=== PATIENT | male | born 1960 | race Caucasian/White ===

== ENCOUNTER 2020-06-22 15:55 | Outpatient (REF) | payer OTHER, SELFPAY | END 2020-06-22 15:56 | disposition home or self-care (01) | LOC: HO.LAB 15:55 | PROVIDERS: Visit Provider Internal Medicine | DX: Z20.828 Contact with and (suspected) exposure to other viral communicable diseases (principal) | CPT/HCPCS: C9803; U0003 ==

== ENCOUNTER → 2024-02-17 09:15 | Outpatient (BNVA) | payer OTHER, SELFPAY | PROVIDERS: PCP Internal Medicine; Visit Provider Registered Nurse | DX: S93.622A Sprain of tarsometatarsal ligament of left foot, initial encounter (principal); W01.198A Fall on same level from slipping, tripping and stumbling with subsequent striking against other object, initial encounter | CPT/HCPCS: 73630; 99204 ==

== ENCOUNTER 2024-03-15 12:53 | Outpatient (REF) | payer OTHER, SELFPAY ==
--- NOTE | ~2024-03-15 | XR_ITS ---
XR ORBITS PRE-MRI SCREENING History: Pre-MRI, evaluate orbits for foreign body. COMPARISON: None. FINDINGS: -No radiopaque foreign bodies in either orbit or elsewhere within the imaged head and calvarium. -Mucous retention cyst suspected in the left maxillary sinus. No air-fluid levels. -Mild left deviation of the nasal septum with a small spur. -No focal bony lesions. Mastoids appear aerated. -No soft tissue abnormalities. XR/XR pre mri screening IMPRESSION: 1. No radiopaque foreign body seen. Cleared for MRI. 2. Probable mucus retention cyst left maxillary antrum.
--- NOTE | ~2024-03-15 | MR_ITS ---
EXAMINATION: MRI OF THE LEFT FOOT WITHOUT CONTRAST CLINICAL INFORMATION: Foot pain for 2 months. Patient reports pain across the top of the foot and toes since November 2023. COMPARISON: X-ray of the left foot January 2014. TECHNIQUE: MRI of the left foot is performed without contrast on a high field MRI scanner. Badmj-en-hrvg includes the forefoot and most of the tarsometatarsal joints. FINDINGS: SUBCUTANEOUS SOFT TISSUES: Minimal edema along the dorsal aspect of the foot. MUSCLES/TENDONS: There is moderate atrophy and fatty infiltration of the flexor hallucis brevis muscle. Muscles and tendons otherwise unremarkable. DISTAL PLANTAR FASCIA: Normal. NEUROVASCULAR STRUCTURES: Normal. LIGAMENTS AND CAPSULAR STRUCTURES: Normal. BONE/CARTILAGE: Second metatarsophalangeal joint: There is moderate osteoarthritis manifested by generalized cartilage loss and marginal osteophytes. Minimal subchondral edema. No effusion. There is mild/odml-im-ijeuzfas osteoarthritis involving the 2nd, 3rd and 4th tarsometatarsal joints manifested by subchondral cystic change. No fracture. MR/MR foot LT wo con IMPRESSION: 1. 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 2. Moderate atrophy and fatty infiltration of the flexor hallucis brevis muscle. 3. Mild generalized edema along the dorsal aspect of the foot.
== END 2024-03-15 12:54 | disposition home or self-care (01) ==
LOC: HO.MRI 12:53
PROVIDERS: PCP Internal Medicine; Visit Provider Internal Medicine
DX: M79.672 Pain in left foot (principal)
CPT/HCPCS: 73718

== ENCOUNTER → 2024-03-15 12:53 | Outpatient (BNV) | payer OTHER, SELFPAY | PROVIDERS: PCP Internal Medicine; Visit Provider Radiology Diagnostic Radiology | DX: M79.672 Pain in left foot (principal) | CPT/HCPCS: 73718 ==

== ENCOUNTER 2024-03-18 09:12 | Outpatient (REF) | payer OTHER, SELFPAY ==
[2024-03-18 10:22] LABS: MANUAL DIFF FLAG NO
[2024-03-18 10:23] LABS: Basophils Absolute Auto 0.1 X10*3/uL (0.0-0.2); Basophils Percent Auto 0.9 % (0-2); Eosinophils Absolute Auto 0.1 X10*3/uL (0.0-0.4); Eosinophils Percent Auto 1.5 % (0-4); Hematocrit 45.8 % (42.0-52.0); Hemoglobin 16.5 g/dl (14.0-18.0); Imm Gran Abs Auto 0.04 X10*3/uL (0.00-0.03); Imm Gran Pct Auto 0.5 % (0.0-0.4); Lymphocytes Absolute Auto 3.5 X10*3/uL (1.2-4.9); Lymphocytes Percent Auto 42.8 % (20-40); Mean Corpuscular Hemoglobin 33.5 pg (27.0-33.0); Mean Corpuscular Volume 93.1 fL (80.0-98.0); Mean Platelet Volume 12.2 fL (9.4-12.4); Monocytes Absolute Auto 0.8 X10*3/uL (0.1-1.2); Monocytes Percent Auto 9.3 % (2-11); Neutrophils Absolute Auto 3.7 x10*3/uL (2.0-8.3); Platelet Count 172 X10*3/uL (160-400); Red Blood Count 4.92 X10*6/uL (4.60-5.80); Red Cell Distribution Width 14.2 % (11.0-16.0); White Blood Count 8.2 X10*3/uL (4.8-10.8)
[2024-03-18 10:44] LABS: Appearance Urine Clear; Color Urine Yellow; Glucose Urine UA Negative (Negative); Leukocyte Esterase Urine Negative (Negative); Nitrite Urine Negative (Negative); PH 6.5 (5.0-9.0); UMIC TRIGGER UA YES; Urine Blood Negative (Negative); Urine Ketones Negative (Negative); Urine Protein 300 (3+) mg/dL (Neg-Trace)
[2024-03-18 10:49] LABS: Alanine Aminotransferase 29 U/L (0-40); Albumin Level 3.9 g/dL (3.5-5.0); Alkaline Phosphatase 90 U/L (39-117); Anion Gap 12 (12-20); Aspartate Amino Transferase 24 U/L (5-37); Bacteria Urine None Seen (None Seen); Bilirubin Total 0.4 mg/dL (0.0-1.0); Blood Urea Nitrogen 7 mg/dL (9-16); Calcium 9.3 mg/dL (8.4-10.2); Carbon Dioxide 25 mmol/L (22-29); Chloride 104 mmol/L (96-108); Cholesterol 272 mg/dL (<200); Estimated Glomerular Filt Rate > 60; Glucose Fasting 133 mg/dL (60-99); HDL Cholesterol 56 mg/dL (>40); Hyaline Casts Urine 0-2 /LPF (0-2); LDL Cholesterol Calculated 189 mg/dL (<100); Potassium 4.1 mmol/L (3.3-5.1); RBC Urine 0-2 /HPF (0-2); Sodium 137 mmol/L (135-145); Squamous Epithelial Cell Urine 0-2 /HPF (0-2); Total Protein 6.9 g/dL (6.5-8.0); Triglycerides 135 mg/dL (<150); WBC Urine 0-5 /HPF (0-5)
[2024-03-18 10:58] LABS: Prostate Specific Antigen Scr 2.68 ng/mL (<0.05-4.0)
== END 2024-03-18 09:13 | disposition home or self-care (01) ==
LOC: HO.10HDL 09:12
PROVIDERS: Visit Provider Internal Medicine
DX: Z12.5 Encounter for screening for malignant neoplasm of prostate (principal); I10 Essential (primary) hypertension; E78.00 Pure hypercholesterolemia, unspecified; Z72.0 Tobacco use
CPT/HCPCS: 36415; 80053; 80061; 81001; 84153; 85025

== ENCOUNTER 2025-04-05 15:08 | Outpatient (AMB) | payer OTHER, SELFPAY ==
--- OUTSIDE RECORDS SUMMARY | 2024-02-07 14:05 | XMS_ITS | Encounter Summary ---
Author Organization [facility] Address [address] [place] [address] [place] [phone] Phone Care Team Providers Care Sas Developer Analyst Name Role Phone Thompson Mayorga MD Primary Care Provider Encounter Details Date Type Department Care Team (Late st Contact Info) Description 02/07/2024 2:05 PM EDT Hospital Encounter [facility] [address] [place] [address] [phone] Ashok Chatman, REQUISITION APPROVER [address] [place] [address] [email or web address] Social History Tobacco Use Types Packs/Day Years [...] clinician's provided indication for this examination in [facility]: Pain; Twisted foot approximately 2 months ago, still having pain COMPARISON: None. Procedure Note Rey Stack MD - 02/07/2024 XR FOOT 3 OR MORE VIEWS (LEFT) Referring clinician's provided indication for this examination in [facility]:Pain; Twisted foot approximately 2 months ago, still having pain COMPARISON: None. IMPRESSION: No acute fracture or dislocation. Mild degenerative changes of the secondmetatarsophalangeal joint and minimal degenerative changes of the 1stmetatarsophalangeal joint. No soft tissue swelling. Melissaenrrique Shepardconstance Chatman REQUISITION APPROVER IMG XR LOWER EXTREMITY Final Result documented in this encounter Visit Diagnoses Not on filedocumented in this encounter Care Teams Sas Developer Analyst Relationship Specialty Start Date End Date Thompson Mayorga MD [address] [place] [address] [place] [address] PCP - General Internal Medicine 02/07/24 documented as of this encounter Additional Source Comments The information contained in this document represents components of the legal health record. It is not the complete legal health record.[facility]
--- NOTE | 2025-04-05 08:30 | A.OFFPC_ITS ---
Vital Signs 04/05/25 15:28 Height 5 ft 6 in Weight 206 lb BMI 33.2 BP 160/80 H Blood Pressure Location Rt brachial Position Sitting Pulse 96 Pulse Source Pulse Oximeter Temp 97.9 F Temp Source Temporal Artery Scan Pulse Oximetry (%) 97 Oxygen Delivery Method Room Air Intake Visit Reasons: Routine / Dr Mayorga Concrete Pump Operator Helper Required: No Accompanied by: Self / Same As Patient Allergies No Known Allergies Allergy (Verified 04/05/25 08:30) Medication List - Last Reconciled 04/05/25 by BIBI Camacho atorvastatin 20 mg PO DAILY diclofenac sodium 1% 2 grams topical QID Tobacco use date assessed: 04/05/25 Dental Screening Dental Screen Date: 04/05/25 Did you have a dental visit in the last 12 months?: No Did you have a dental problem in the last 6 months where you did not have access to dental care?: No HPI HPI Comments History of Present Illness Details The patient is a 64-year-old male presenting with concerns regarding hyp ertension management, foot pain, and skin lesions. The patient has a history of essential hypertension, previously managed with lisinopril, which was effective but discontinued due to a possible side effect of dry cough. He has not been on antihypertensive medication for some time, and his blood pressure was noted to be 160/80 mmHg. The plan is to reassess his blood pressure and consider restarting lisinopril or an alternative medication if necessary. The patient reports a left foot injury sustained from a work-related accident, resulting in persistent pain and swelling. He received a cortisone injection previously, which provided temporary relief, and has been using Voltaren gel for pain management. Imaging studies from a year ago revealed arthritis in the affected foot. The patient also presents with skin lesions diagnosed as seborrheic keratosis and actinic keratosis. These lesions have been present for some time, and a referral to a safety lead was recommended for further evaluation and management. [facility] Medical History (Updated 04/07/25 @ 15:47 by BIBI Camacho) Actinic keratoses Hyperlipidemia Hypertension Left foot pain Obesity (BMI 30.0-34.9) Seborrheic keratoses Family History (Updated 04/05/25 @ 15:32 by Sandee Shook MA) Mother No problems noted. Father No problems noted. Social History Housing: House Patient Tobacco Use Status: Current everyday Tobacco user e-Cigarette/Vaping Use: Currently Using (cigarette) service: No Current occupational status: retired Cognitive needs: No Hearing needs: No Vision needs: Yes (reading glasses) Questionnaire PHQ-9 Over the last 2 weeks, how often have you been bothered by any of the following problems? 1. Little interest or pleasure in doing things: not at all 2. Feeling down, depressed, or hopeless: not at all 3. Trouble falling or staying asleep, or sleeping too much: not at all 4. Feeling tired or having little energy: not at all 5. Poor appetite or overeating: not at all 6. Feeling bad about yourself - or that you are a failure or have let yourself or your family down: not at all 7. Trouble concentrating on things, such as reading the newspaper or watching television: not at all 8. Moving or speaking so slowly that other people could have noticed. Or the opposite - being so fidgety or restless that you have been moving around a lot more than usual: not at all 9. Thoughts that you would be better off or of hurting yourself in some way: not at all Total score: 0 Source: Developed by Drs. Devyn Spaulding, Chayito Bruce, Tomy Oropeza and colleagues, with an educational kathia from [employer]. Thrive Questionnaire Date Thrive assessed: 04/05/25 I am a: Patient Within the past 12 months, did the food you bought not last and you didn't have the money to get more?: Never true Within the past 12 months, did you worry whether your food would run out before you got money to buy more?: Never true Do you have trouble paying for medicines?: No Do you have trouble getting transportation to medical appointments?: No Do you have trouble paying your heating and electricity bill?: No Do you have trouble taking care of your child, family member or friend?: No Do you have trouble with day-to-day activities such as bathing, preparing meals, shopping, managing finances, etc.?: No Are you currently unemployed and looking for a job?: No Are you interested in more education?: No THRIVE Score: 0 AUDIT C Alcohol Use Questionnaire (AUDIT-C) 1. How often do you have a drink containing alcohol?: Monthly or less 2. How many drinks containing alcohol do you have on a typical day when you are drinking?: 1 or 2 3. How often do you have six or more drinks on one occasion?: Less than monthly Total Score: 2 MARGY-7 AMB Questionnaire MARGY-7 Date MARGY - 7 assessed: 04/05/25 Feeling nervous, anxious, or on edge: 0 = Not at all Not being able to stop or control worryin = Not at all Worrying too much about different things: 0 = Not at all Trouble relaxin = Not at all Being so restless that it is hard to sit still: 0 = Not at all Becoming easily annoyed or irritable: 0 = Not at all Feeling afraid as if something awful might happen: 0 = Not at all Total MARGY-7 score (0-4 normal; 5-9 mild; 10-14 moderate; 15-21 severe): 0 Source: Developed by Drs. Devyn Spaulding, Chayito Bruce, Tomy Oropeza and colleagues, with an educational kathia from [employer]. Review of Systems Const Details: - Dermatological: Reports skin lesions on the face. Denies new lesions elsewhere. - Neurological: Reports numbness and occasional spasms in the foot. Denies other neurological symptoms. CONSTITUTIONAL Negative HEAD/NECK Negative EAR/NOSE/MOUTH/THROAT Negative RESPIRATORY Negative CARDIOVASCULAR Reports history of hypertension. Denies current chest pain or palpitations. GASTROINTESTINAL Negative MUSCULOSKELETAL Reports left foot pain and swelling. Denies other joint pain. NEUROLOGICAL Reports numbness and occasional spasms in the foot. Denies other neurological symptoms. SKIN Reports skin lesions on the left side of face. Denies new lesions elsewhere. PSYCHIATRIC Negative Physical exam (Primary Care) Vital Signs: Last Vital Signs Temp 97.9 F 04/05/25 15:28 Pulse 96 04/05/25 15:28 BP 160/80 H 04/05/25 15:28 Pulse Ox 97 04/05/25 15:28 Oxygen Delivery Method Room Air 04/05/25 15:28 BMI result Body Mass Index 33.2 GENERAL Well developed, obese, in no apparent distress HEENT Head-Normocephalic Eyes- PERRLA, EOMI, Conjuctiva clear, lids WNL Ears- Canals clear, TMs WNL Mouth/Throat-No lesions, no erythema, no exudate Neck- Supple, No lymphadenopathy, thyroid WNL RESPIRATORY Normal I:E, Clear to auscultation CARDIOVASCULAR Regular, rate and rhythm, No murmurs or rubs GASTROINTESTINAL Soft, nontender, normal bowel sounds, no masses MUSCULOSKELETAL Left foot- Full ROM, no swelling, tender in heel and across top of foot. NEUROLOGICAL Gait normal SKIN Small Seborrheic keratosis on left cheek, small Actinic keratosis on left cheek PSYCHIATRIC Oriented to person, place and time Mood and affect WNL Appearance WNL Speech WNL Thought processes WNL Tobacco/Smoking Status: Tobacco use Status Tobacco use date assessed 04/05/25 04/05/25 08:32 Patient Tobacco Use Status Current everyday Tobacco 04/05/25 15:33 e-Cigarette/Vaping Use Currently Using (cigarette) 04/05/25 15:33 PHQ-9: PHQ-9 Score PHQ-9: Total score 0 04/05/25 15:54 Thrive Assessment: Date of Thrive Assessment Date Thrive assessed 04/05/25 04/05/25 08:32 Results Reviewed Results Reviewed: [place] [address] Magnetic Resonance Report Signed Patient: Ralph Golden MR#: [id number] : 1960 Ordering Physician: Tapan Teixeira MD Date of Service: 03/15/24 Procedure(s): MR foot LT wo con Accession Number(s): [id number] cc: Tapan Teixeira MD; Thompson Mayorga MD; SESAR LANDON M.D.~ EXAMINATION: MRI OF THE LEFT FOOT WITHOUT CONTRAST CLINICAL INFORMATION: Foot pain for 2 months. Patient reports pain across the top of the foot and toes since November 2023. COMPARISON: X-ray of the left foot January 2014. TECHNIQUE: MRI of the left foot is performed without contrast on a high field MRI scanner. Xwzvd-jj-qymt includes the forefoot and most of the tarsometatarsal joints. FINDINGS: SUBCUTANEOUS SOFT TISSUES: Minimal edema along the dorsal aspect of the foot. MUSCLES/TENDONS: There is moderate atrophy and fatty infiltration of the flexor hallucis brevis muscle. Muscles and tendons otherwise unremarkable. DISTAL PLANTAR FASCIA: Normal. NEUROVASCULAR STRUCTURES: Normal. LIGAMENTS AND CAPSULAR STRUCTURES: Normal. BONE/CARTILAGE: Second metatarsophalangeal joint: There is moderate osteoarthritis manifested by generalized cartilage loss and marginal osteophytes. Minimal subchondral edema. No effusion. There is mild/ludd-xx-fiusvjjq osteoarthritis involving the 2nd, 3rd and 4th tarsometatarsal joints manifested by subchondral cystic change. No fracture. MR/MR foot LT wo con IMPRESSION: 1. 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 2. Moderate atrophy and fatty infiltration of the flexor hallucis brevis muscle. 3. Mild generalized edema along the dorsal aspect of the foot. Coding Level of Care Code New Pt New Pt Level 4 (23687) Patient Type New Diagnoses Left foot pain M79.672 Primary hypertension I10 Hypertension type: primary hypertension Seborrheic keratoses L82.1 Actinic keratoses L57.0 Mixed hyperlipidemia E78.2 Hyperlipidemia type: mixed hyperlipidemia Obesity (BMI 30.0-34.9) E66.811 Time Spent (min) 35 Comment Time spent on chart review, H&P, patient education, placing referrals and orders Assessment & Plan Assessment & Plan (1) Left foot pain: Code(s): M79.672 - Pain in left foot Category: Medical Plan: The patient experiences persistent foot pain and swelling due to arthritis, confirmed by imaging studies a year ago. Current management includes the use of Voltaren gel for pain relief. A referral to Dr. Landon/Sweta for further evaluation and management was recommended. (2) Hypertension: Code(s): I10 - Essential (primary) hypertension Category: Medical Qualifiers: Hypertension type: primary hypertension Qualified Code(s): I10 - Essential (primary) hypertension Plan: The patient's blood pressure was noted to be 160/80 mmHg, indicating uncontrolled hypertension. A plan was discussed to perform blood work and reassess blood pressure in three to four weeks. If hypertension persists, restarting lisinopril or considering an alternative medication was proposed. (3) Seborrheic keratoses: Code(s): L82.1 - Other seborrheic keratosis Category: Medical Plan: The patient has seborrheic keratosis on his left cheek, which has been present for some time. A referral to a safety lead was made for evaluation and potential removal. (4) Actinic keratoses: Code(s): L57.0 - Actinic keratosis Category: Medical Plan: The patient also presents with actinic keratosis, identified as a flat, scaly lesion. Dermatological consultation was advised to determine the best treatment approach. (5) Hyperlipidemia: Code(s): E78.5 - Hyperlipidemia, unspecified Category: Medical Qualifiers: Hyperlipidemia type: mixed hyperlipidemia Qualified Code(s): E78.2 - Mixed hyperlipidemia Plan: Will continue Atorvastatin. Patient will continue current medications. Will monitor. Patient will follow up in 6 months. (6) Obesity (BMI 30.0-34.9): Code(s): E66.811 - Obesity, class 1 Category: Medical Plan: Patient's BMI today was 33.2. Discussed the health risks of obesity with the patient. Reviewed benefits of even moderate weight loss with the patient. Patient will gradually try and increase exercise to 30-40 min 5-7 times per week. We discussed they may need to break the exercise up into 2-3 sessions daily due to foot pain. We discussed the patient adding more fruits and vegetables to their diet. Will monitor weight and follow up in 6 months Plan During the visit, we discussed the management of the patient's hypertension, including the possibility of restarting lisinopril or trying an alternative medication if necessary. We also addressed the patient's foot pain due to arthritis, recommending continued use of Voltaren gel and a referral to Dr. Landon for further evaluation. For the skin lesions, a referral to a safety lead was made to assess and manage the seborrheic and actinic keratoses. Orders: Referrals Dermatology Referral L57.0 - Actinic keratosis, L82.1 - Other seborrheic keratosis Orthopedics Referral M79.672 - Pain in left foot Medications: New diclofenac sodium 1% apply to single elbow, wrist or hand; for hand includes palm/fingers/back of hand 2 grams topical QID 100 grams 6RF left foot pain Patient Instructions: - Continue using Voltaren gel as needed for foot pain. - Schedule a follow-up appointment in three to four weeks to reassess blood pressure. - Follow up with Dr. Landon for further evaluation of foot pain. - Attend the dermatology appointment for evaluation of skin lesions.
[2025-04-05 15:28] VITALS: BP 160/80; PULSE 96; TEMP 36.6; O2SAT 97; BMI 33.2
--- OUTSIDE RECORDS SUMMARY | 2025-04-05 17:16 | XMS_ITS | Patient Health Record ---
Author Organization [facility] Address [address] [place] [address] Care Team Providers Care Cleater Name Role Phone Tierra (RETIRED) Thompson CRISTINA Primary Care Provide Ramon Chávez Jr Unavailable [phone] Allergies Allergen (clinical drug ingredient) Drug/Non Drug Allergy documented on EMR Reaction Allergy Type Onset Date Status seasonal (uncoded) Unknown Allergy A ctive Reason For Referral No Information Medications Medication SIG (Take, Route, Frequency, Duration) Notes Start Date End Date Status Colyte with Flavor Packs 240 GM As directed Orally Over the specified time. for 1 day(s) 01/02/2016 Active Simvastatin Active Omeprazole 20 MG 1 capsule Orally Onc e a day Active Lisinopril Active Metoprolol Succinate Active Problems Problem Type SNOMED Code ICD Code Onset Dates Problem Status W/U Status Risk Notes Problem [id number] Colon cancer screening (Z12.11) Active confirmed Problem [id number] Gastro-esophagea l reflux disease without esophagitis (K21.9) Active confirmed Plan Of Treatment Future Test Test Name Order Date COLONOSCOPY 01/02/2016 Insurance Providers Payer Name Payer Address Payer Phone Subscriber Number Group Number Insured Name Patient Relationship to Insured Coverage Start Date Coverage End Date [facility] [address] [facility] [phone] [id number] IBAN JAZMINE Self - patient is the insured Medical (General) History Medical History History ICD Code hypertension Denies NM,DM,CVA,Lung disease,renal dise ase
--- OUTSIDE RECORDS SUMMARY | 2025-04-05 17:16 | XMS_ITS | Clinical Summary ---
Author Organization [facility] Address [address] [address] Phone Care Team Providers Care Tobacco Curer Name Role Phone Thompson Mayorga MD Primary Care Provider Allergies No known active allergies Medications metoprolol tartrate (LOPRESSOR) 25 MG tablet Take 25 mg by mouth 2 (two) times a day. Active Active Problems No known active problems Social History Tobacco Use Types Packs/Day Years [...] on file Sexual Orientation Not on file Last Filed Vital Signs Vital Sign Reading Time Taken Comments Blood Pressure 173/95 02/07/2024 1:49 PM EDT Pulse 68 02/07/2024 1:49 PM EDT Temperature - - Respiratory Rate - - Oxygen Saturation 95% 02/07/2024 1:49 PM EDT Inhaled Oxygen Concentration - - Weight - - Height - - Body Mass Index - - Plan of Treatment Health Maintenance Due Date Last Done Comments Adult Td,Tdap Booster 1962 LIPID PANEL 1962 DEPRESSION SCREENING 1974 SMOKING Hx and SMOKELESS TOBACCO SCREENING 1975 HEPATITIS C SCREENING 1980 HIV ONE-TIME SCREENING (18-6 5 YEARS) 1980 COLOGUARD 2007 COLONOSCOPY 2007 COLORECTAL CANCER SCREENING 2007 FIT TEST 2007 FOBT 2007 SIGMOIDOSCOPY 2007 VIRTUAL COLONOSCOPY 2007 PNEUMOCOCCAL VACCINES (50+ years) (1 of 1 - PCV) 2012 ZOSTER VACCINES (1 of 2) 2012 COVID-19 VACCINE (4 - 2023-2 5 season) 2024 07/23/2021, 11/13/2020, 10/16/2020 RSV VACCINE (1 - 1-dose 75+ series) 2037 HEPATITIS A VACCINES Aged Out No long er eligible based on patient's age to complete this topic HIB VACCINES Aged Out No longer eligi ble based on patient's age to complete this topic MENINGOCOCCAL VACCINES (ACWY) Aged Out No longer eligible based on patient's age to complete this topic MENINGOCOCCAL VACCINES (B) Aged Out N o longer eligible based on patient's age to complete this topic Medical Devices Not on file [facility] HMO WORKERS COMPENSATION Care Teams Tobacco Curer Relationship Specialty Start Date End Date Thompson Mayorga MD [address] [place] [address] [place] [address] PCP - General Internal Medicine 02/07/24 Additional Source Comments The information contained in this document represents components of the legal health record. It is not the complete legal health record.[facility]
== END 2025-04-05 16:00 | disposition home or self-care (01) ==
LOC: HO.HMCHD 15:09
PROVIDERS: PCP Internal Medicine; Visit Provider Physician Assistant Medical
DX: M79.672 Pain in left foot (principal); I10 Essential (primary) hypertension; L82.1 Other seborrheic keratosis; L57.0 Actinic keratosis; E78.2 Mixed hyperlipidemia; E66.811 Obesity, class 1

== ENCOUNTER 2025-05-04 14:15 | Outpatient (REF) | payer OTHER, SELFPAY ==
--- OUTSIDE RECORDS SUMMARY | 2024-02-07 14:05 | XMS_ITS | Encounter Summary ---
Author Organization [facility] Address [address] [place] [address] [place] [phone] Phone Care Team Providers Care Scrubber Machine Tender Name Role Phone Thompson Mayorga MD Primary Care Provider Encounter Details Date Type Department Care Team (Late st Contact Info) Description 02/07/2024 2:05 PM EDT Hospital Encounter [facility] [address] [place] [address] [phone] Ashok Chatman, CARPENTER LABOR SUPERVISOR [address] [place] [address] [email or web address] Social History Tobacco Use Types Packs/Day Years [...] clinician's provided indication for this examination in [facility]: Pain; Twisted foot approximately 2 months ago, still having pain COMPARISON: None. Procedure Note Rey Stack MD - 02/07/2024 XR FOOT 3 OR MORE VIEWS (LEFT) Referring clinician's provided indication for this examination in [facility]:Pain; Twisted foot approximately 2 months ago, still having pain COMPARISON: None. IMPRESSION: No acute fracture or dislocation. Mild degenerative changes of the secondmetatarsophalangeal joint and minimal degenerative changes of the 1stmetatarsophalangeal joint. No soft tissue swelling. Melissaenrrique Shepardconstance Chatman CARPENTER LABOR SUPERVISOR IMG XR LOWER EXTREMITY Final Result documented in this encounter Visit Diagnoses Not on filedocumented in this encounter Care Teams Scrubber Machine Tender Relationship Specialty Start Date End Date Thompson Mayorga MD [address] [place] [address] [place] [address] PCP - General Internal Medicine 02/07/24 documented as of this encounter Additional Source Comments The information contained in this document represents components of the legal health record. It is not the complete legal health record.[facility]
[2025-05-04 15:32] LABS: Hematocrit 44.2 % (42.0-52.0); Mean Corpuscular Volume 91.3 fL (80.0-98.0); NRBC Abs Auto 0.000 X10*3/uL (0.0-0.012); NRBC Pct Auto 0.0 /100WBC (0.0-0.2); Red Blood Count 4.84 X10*6/uL (4.60-5.80)
[2025-05-04 15:34] LABS: Hemoglobin 16.1 g/dl (14.0-18.0); Mean Corpuscular HGB Conc 36.4 g/dl (31.0-36.0); Mean Corpuscular Hemoglobin 33.3 pg (27.0-33.0); PLT CLUMP 1
--- OUTSIDE RECORDS SUMMARY | 2025-05-04 15:51 | XMS_ITS | Clinical Summary ---
Author Organization [facility] Address [address] [address] Phone Care Team Providers Care Research Program Intern Name Role Phone Thompson Mayorga MD Primary [...] 2012 ZOSTER VACCINES (1 of 2) 2012 INFLUENZA VACCINE (#1) 2025 COVID-19 VACCINE (4 - 2024-2 6 season) 2025 07/23/2021, 11/13/2020, 10/16/2020 RSV VACCINE (1 - [...] topic Medical Devices Not on file [facility] H[employer] WORKERS COMPENSATION Care Teams Research Program Intern Relationship Specialty Start Date End Date Thompson Mayorga MD [address] [place] [address] [place] [address] PCP - General Internal Medicine 02/07/24 Additional Source Comments The information contained in this document represents components of the legal health record. It is not the complete legal health record.[facility]
--- OUTSIDE RECORDS SUMMARY | 2025-05-04 15:51 | XMS_ITS | Patient Health Record ---
Author Organization [facility] Address [address] [place] [address] Care Team Providers Care Senior Scrum Master Name Role Phone Tierra (RETIRED) Thompson CRISTINA Primary Care Provide Ramon Chávez Jr Unavailable Allergies Allergen (clinical drug ingredient) Drug/Non Drug [...] Problem Status W/U Status Risk Notes Problem [id number] Colon cancer screening (Z12.11) Active confirmed Problem 146200347 Gastro-esophagea l reflux disease without esophagitis (K21.9) Active confirmed Plan Of Treatment Future Test Test Name Order Date COLONOSCOPY 01/02/2016 Insurance Providers Payer Name Payer Address Payer Phone Subscriber Number Group Number Insured Name Patient Relationship to Insured Coverage Start Date Coverage End Date [facility] [address] [facility] [phone] [id number] IBAN JAZMINE Self - patient is the insured Medical (General) History Medical History History ICD Code hypertension Denies MS,DM,CVA,Lung disease,renal dise ase
[2025-05-04 15:52] LABS: Alanine Aminotransferase 33 U/L (0-40); Albumin Level 4.0 g/dL (3.5-5.0); Alkaline Phosphatase 107 U/L (39-117); Anion Gap 12 (12-20); Aspartate Amino Transferase 30 U/L (5-37); Blood Urea Nitrogen 13 mg/dL (9-16); Calcium 9.1 mg/dL (8.4-10.2); Carbon Dioxide 27 mmol/L (22-29); Chloride 104 mmol/L (96-108); Estimated Glomerular Filt Rate > 60; Potassium 3.8 mmol/L (3.3-5.1); Sodium 139 mmol/L (135-145); Total Protein 7.1 g/dL (6.5-8.0)
[2025-05-04 15:59] LABS: PLT ABN DIST 1
[2025-05-04 16:01] LABS: White Blood Count 8.5 X10*3/uL (4.8-10.8)
== END 2025-05-04 14:16 | disposition home or self-care (01) ==
LOC: HO.LAB 14:15
PROVIDERS: PCP Physician Assistant Medical; Visit Provider Physician Assistant Medical
DX: I10 Essential (primary) hypertension (principal); E78.2 Mixed hyperlipidemia; Z79.899 Other long term (current) drug therapy
CPT/HCPCS: 36415; 80053; 84443; 85027

== ENCOUNTER 2025-05-08 10:23 | Outpatient (AMB) | payer OTHER, SELFPAY ==
--- OUTSIDE RECORDS SUMMARY | 2024-02-07 14:05 | XMS_ITS | Encounter Summary ---
Author Organization [facility] Address [address] [place] [address] [place] [phone] Phone Care Team Providers Care Information Technology Analyst Name Role Phone Thompson Mayorga MD Primary Care Provider Encounter Details Date Type Department Care Team (Late st Contact Info) Description 02/07/2024 2:05 PM EDT Hospital Encounter [facility] [address] [place] [address] [phone] Ashok Chatman, MILK DRIER [address] [place] [address] [email or web address] Social History Tobacco Use Types Packs/Day [...] clinician's provided indication for this examination in [facility]: Pain; Twisted foot approximately 2 months ago, still having pain COMPARISON: None. Procedure Note Rey Stack MD - 02/07/2024 XR FOOT 3 OR MORE VIEWS (LEFT) Referring clinician's provided indication for this examination in [facility]:Pain; Twisted foot approximately 2 months ago, still having pain COMPARISON: None. IMPRESSION: No acute fracture or dislocation. Mild degenerative changes of the secondmetatarsophalangeal joint and minimal degenerative changes of the 1stmetatarsophalangeal joint. No soft tissue swelling. Melissaenrrique Shepardconstance Chatman MILK DRIER IMG XR LOWER EXTREMITY Final Result documented in this encounter Visit Diagnoses Not on filedocumented in this encounter Care Teams Information Technology Analyst Relationship Specialty Start Date End Date Thompson Mayorga MD [address] [place] [address] [place] [address] PCP - General Internal Medicine 02/07/24 documented as of this encounter Additional Source Comments The information contained in this document represents components of the legal health record. It is not the complete legal health record.[facility]
[2025-05-08 08:42] VITALS: BP 156/90; PULSE 84; TEMP 36.2; O2SAT 97; BMI 33.6
--- NOTE | 2025-05-08 08:42 | A.OFFPC_ITS ---
Vital Signs 05/08/25 08:42 Height 5 ft 6 in Weight 208 lb BMI 33.6 BP 156/90 H Blood Pressure Location Rt brachial Position Sitting Pulse 84 Pulse Source Pulse Oximeter Temp 97.2 F Temp Source Temporal Artery Scan Pulse Oximetry (%) 97 Oxygen Delivery Method Room Air Intake Visit Reasons: routine Supervisor Transcribing Operators Required: No Accompanied by: Self / Same As Patient Allergies No Known Allergies Allergy (Verified 05/08/25 08:42) Medication List - Last Reconciled 05/08/25 by BIBI Camacho atorvastatin 20 mg PO DAILY lisinopril 5 mg PO DAILY Tobacco use date assessed: 05/08/25 Dental Screening Dental Screen Date: 05/08/25 Did you have a dental visit in the last 12 months?: Yes Did you have a dental problem in the last 6 months where you did not have access to dental care?: No HPI HPI Comments History of Present Illness Details The patient is a 64-year-old male presenting for management of hypertension and elevated blood glucose levels. The patient has a history of hypertension, previously managed with lisinopril at a dose of 5 mg, which was effective in controlling his blood pressure. Recently, his blood pressure has been elevated again. His BP today was 156/90. Additionally, the patient was found to have an increase in blood glucose levels, 136 on recent labs of 05/04, which will be monitored with follow-up testing of A1C will be done to determine if further intervention is necessary. He has an appointment pending with dermatology. He is still waiting for a follow up with [facility] for foot pain. [facility] Medical History (Updated 05/08/25 @ 15:46 by BIBI Camacho) Actinic keratoses Hyperglycemia Hyperlipidemia Hypertension Left foot pain Medication management Obesity (BMI 30.0-34.9) Seborrheic keratoses Family History Mother No problems noted. Father No problems noted. Social History Housing: House Patient Tobacco Use Status: Current everyday Tobacco user e-Cigarette/Vaping Use: Currently Using (cigarette) service: No Current occupational status: retired Cognitive needs: No Hearing needs: No Vision needs: Yes (reading glasses) Questionnaire PHQ-9 Over the last 2 weeks, how often have you been bothered by any of the following problems? 1. Little interest or pleasure in doing things: not at all 2. Feeling down, depressed, or hopeless: not at all 3. Trouble falling or staying asleep, or sleeping too much: not at all 4. Feeling tired or having little energy: not at all 5. Poor appetite or overeating: not at all 6. Feeling bad about yourself - or that you are a failure or have let yourself or your family down: not at all 7. Trouble concentrating on things, such as reading the newspaper or watching television: not at all 8. Moving or speaking so slowly that other people could have noticed. Or the opposite - being so fidgety or restless that you have been moving around a lot more than usual: not at all 9. Thoughts that you would be better off or of hurting yourself in some way: not at all Total score: 0 Depression Screening Interpretation: Negative Depression Screening Done: Yes Source: Developed by Drs. Devyn Spaulding, Chayito Bruce, Tomy Oropeza and colleagues, with an educational kathia from [employer]. Thrive Questionnaire Date Thrive assessed: 05/08/25 I am a: Patient Within the past 12 months, did the food you bought not last and you didn't have the money to get more?: Never true Within the past 12 months, did you worry whether your food would run out before you got money to buy more?: Never true Do you have trouble paying for medicines?: No Do you have trouble getting transportation to medical appointments?: No Do you have trouble paying your heating and electricity bill?: No Do you have trouble taking care of your child, family member or friend?: No Do you have trouble with day-to-day activities such as bathing, preparing meals, shopping, managing finances, etc.?: No Are you currently unemployed and looking for a job?: No Are you interested in more education?: No THRIVE Score: 0 AUDIT C Alcohol Use Questionnaire (AUDIT-C) 1. How often do you have a drink containing alcohol?: Monthly or less 2. How many drinks containing alcohol do you have on a typical day when you are drinking?: 1 or 2 3. How often do you have six or more drinks on one occasion?: Less than monthly Total Score: 2 MARGY-7 AMB Questionnaire MARGY-7 Date MARGY - 7 assessed: 05/08/25 Feeling nervous, anxious, or on edge: 0 = Not at all Not being able to stop or control worryin = Not at all Worrying too much about different things: 0 = Not at all Trouble relaxin = Not at all Being so restless that it is hard to sit still: 0 = Not at all Becoming easily annoyed or irritable: 0 = Not at all Feeling afraid as if something awful might happen: 0 = Not at all Total MARGY-7 score (0-4 normal; 5-9 mild; 10-14 moderate; 15-21 severe): 0 Source: Developed by Drs. Devyn Spaulding, Chayito Bruce, Tomy Oropeza and colleagues, with an educational kathia from [employer]. Review of Systems Const Details: CONSTITUTIONAL Negative HEAD/NECK Negative RESPIRATORY Negative CARDIOVASCULAR Negative MUSCULOSKELETAL left foot pain NEUROLOGICAL Negative PSYCHIATRIC Negative Physical exam (Primary Care) Vital Signs: Last Vital Signs Temp 97.2 F 05/08/25 08:42 Pulse 84 05/08/25 08:42 BP 156/90 H 05/08/25 08:42 Pulse Ox 97 05/08/25 08:42 Oxygen Delivery Method Room Air 05/08/25 08:42 BMI result Body Mass Index 33.6 GENERAL Well developed, obese, in no apparent distress HEENT Head-Normocephalic Neck- Supple, No lymphadenopathy, thyroid WNL RESPIRATORY Normal I:E, Clear to auscultation CARDIOVASCULAR Regular, rate and rhythm, No murmurs or rubs NEUROLOGICAL Gait normal PSYCHIATRIC Oriented to person, place and time Mood and affect WNL Appearance WNL Speech WNL Thought processes WNL Tobacco/Smoking Status: Tobacco use Status Tobacco use date assessed 05/08/25 05/08/25 08:43 Patient Tobacco Use Status Current everyday Tobacco 05/08/25 08:43 e-Cigarette/Vaping Use Currently Using (cigarette) 05/08/25 08:43 PHQ-9: PHQ-9 Score PHQ-9: Total score 0 05/08/25 10:49 Depression Screening Interpretation: Negative Thrive Assessment: Date of Thrive Assessment Date Thrive assessed 05/08/25 05/08/25 08:43 Coding Level of Care Code Established Pt Est Pt Level 3 (85623) Patient Type Established Diagnoses Primary hypertension I10 Hypertension type: primary hypertension Mixed hyperlipidemia E78.2 Hyperlipidemia type: mixed hyperlipidemia Hyperglycemia R73.9 Obesity (BMI 30.0-34.9) E66.811 Time Spent (min) 25 Comment Time spent on chart review, H&P, patient education and placing orders. Assessment & Plan Assessment & Plan (1) Hypertension: Comment: BP today was 156/90 Code(s): I10 - Essential (primary) hypertension Category: Medical Qualifiers: Hypertension type: primary hypertension Qualified Code(s): I10 - Essential (primary) hypertension Plan: The patient will be restarted on lisinopril 5 mg, with the prescription sent to [facility]. A follow-up appointment is scheduled in three months to monitor blood pressure response to the medication. (2) Hyperlipidemia: Code(s): E78.5 - Hyperlipidemia, unspecified Category: Medical Qualifiers: Hyperlipidemia type: mixed hyperlipidemia Qualified Code(s): E78.2 - Mi xed hyperlipidemia Plan: Patient is on Atorvastatin. Will check lipids. Patient will continue current medications. Will monitor. Patient will follow up in 3 months. (3) Hyperglycemia: Code(s): R73.9 - Hyperglycemia, unspecified Category: Medical Plan: The patient will undergo follow-up testing to assess blood glucose levels and determine if further intervention is required. A1C requested (4) Obesity (BMI 30.0-34.9): Comment: BMI today was 33.6 Code(s): E66.811 - Obesity, class 1 Category: Medical Plan: Patient has maintained the same weight. Diet and exercise were reviewed. Plan I discussed with the patient the need to restart lisinopril for hypertension management and the plan to monitor blood glucose levels with follow-up testing. We also talked about the potential use of LiverAid, noting that while it may not be harmful, its efficacy for weight loss is uncertain. Orders: Orders Lipid Panel Today E78.2 - Mixed hyperlipidemia Medications: New lisinopril 5 mg PO DAILY 90 tabs 1RF for blood pressure Patient Instructions: - Take lisinopril 5 mg as prescribed. - Schedule and attend follow-up blood work to monitor glucose levels. - Return for a follow-up appointment in three months to check blood pressure.
--- OUTSIDE RECORDS SUMMARY | 2025-05-08 12:11 | XMS_ITS | Patient Health Record ---
Author Organization [facility] Address [address] [place] [address] Care Team Providers Care Social Services Director Name Role Phone Tierra (RETIRED) Thompson CRISTINA [...] Problem Status W/U Status Risk Notes Problem [id number] Colon cancer screening (Z12.11) Active confirmed Problem 972356326 Gastro-esophagea l reflux disease without esophagitis (K21.9) Active confirmed Plan Of Treatment Future Test Test Name Order Date COLONOSCOPY 01/02/2016 Insurance Providers Payer Name Payer Address Payer Phone Subscriber Number Group Number Insured Name Patient Relationship to Insured Coverage Start Date Coverage End Date [facility] [address] [facility] [phone] [id number] IBAN JAZMINE Self - patient is the insured Medical (General) History Medical History History ICD Code hypertension Denies [place],DM,CVA,Lung disease,renal dise ase
--- OUTSIDE RECORDS SUMMARY | 2025-05-08 12:11 | XMS_ITS | Clinical Summary ---
Author Organization [facility] Address [address] [address] Phone Care Team Providers Care Surgeon'S Assistant Name Role Phone Thompson Mayorga MD Primary [...] topic Medical Devices Not on file [facility] HMO WORKERS COMPENSATION Care Teams Surgeon'S Assistant Relationship Specialty Start Date End Date Thompson Mayorga MD [address] [place] [address] [place] [address] PCP - General Internal Medicine 02/07/24 Additional Source Comments The information contained in this document represents components of the legal health record. It is not the complete legal health record.[facility]
== END 2025-05-08 11:15 | disposition home or self-care (01) ==
LOC: HO.HMCHD 10:24
PROVIDERS: PCP Physician Assistant Medical; Visit Provider Physician Assistant Medical
DX: I10 Essential (primary) hypertension (principal); E78.2 Mixed hyperlipidemia; R73.9 Hyperglycemia, unspecified; E66.811 Obesity, class 1

== ENCOUNTER 2025-05-08 11:19 | Outpatient (REF) | payer OTHER, SELFPAY ==
[2025-05-08 14:03] LABS: Cholesterol 247 mg/dL (<200); HDL Cholesterol 51 mg/dL (>40); Triglycerides 166 mg/dL (<150)
[2025-05-08 14:06] LABS: Hemoglobin A1C 206.2610 umol/L; Total Hemoglobin (HGBA1C) 4031.6518 umol/L
== END 2025-05-08 11:20 | disposition home or self-care (01) ==
LOC: HO.10HDL 11:19
PROVIDERS: Visit Provider Physician Assistant Medical
DX: R73.9 Hyperglycemia, unspecified (principal); E78.2 Mixed hyperlipidemia
CPT/HCPCS: 36415; 80061; 83036

== ENCOUNTER 2025-06-13 10:37 | Outpatient (AMB) | payer OTHER, SELFPAY ==
--- OUTSIDE RECORDS SUMMARY | 2024-02-07 13:05 | XMS_ITS | Encounter Summary ---
Author Organization [facility] Address [address] [place] [address] [place] [phone] Phone Care Team Providers Care Mold Yarn Supervisor Name Role Phone Thomposn Mayorga MD Primary Care Provider Encounter Details Date Type Department Care Team (Late st Contact Info) Description 02/07/2024 2:05 PM EDT Hospital Encounter [facility] [address] [place] [address] [phone] Ashok Chatman, ANIMAL FEEDER [address] [place] [address] [email or web address] Social History Tobacco Use Types Packs/Day Years Used Date Smoking Tobacco: Never Assessed Education Answer Date Recorded Are you interested in more education? Not on etta e 02/07/2024 Are you concerned about learning? Not on file 02/07/2024 No 02/07/2024 No 02/07/2024 Digital Access Answer Date Recorded No 02/07/2024 No 02/07/2024 Reliable internet access at home? Not on file 02/07/2024 Device with a working camera? Not on file Sex and Gender Information Value Date Recorded Sex Assigned at Not on file Legal Sex Male 1:33 PM EDT Gender Identity Not on file Sexual Orientation Not on file documented as of this encounter Plan of Treatment Not on file documented as of this encounter Procedures Procedure Name Priority Date/Time Associated Diagnosis Comments XR FOOT 3 OR MORE VIEWS (LEFT) Urgent/patient waiting 02/07/2024 2:15 PM EDT Left foot pain documented in this encounter Results * XR FOOT 3 OR MORE VIEWS (LEFT) (02/07/2024 2:15 PM EDT) Anatomical Region Laterality Modality Foot Left Computed Radiogr aphy 02/07/2024 2:28 PM EDT Impressions 02/07/2024 2:29 PM EDT No acute fracture or dislocation. Mild degenerative changes of the second metatarsophalangeal joint and minimal degenerative changes of the 1st metatarsophalangeal joint. No soft tissue swelling. Narrative 02/07/2024 2:29 PM EDT XR FOOT 3 OR MORE VIEWS (LEFT) Referring clinician's provided indication for this examination in [facility]: Pain; Twisted foot approximately 2 months ago, still having pain COMPARISON: None. Procedure Note Rey Stack MD - 02/07/2024 XR FOOT 3 OR MORE VIEWS (LEFT) Referring clinician's provided indication for this examination in [facility]:Pain; Twisted foot approximately 2 months ago, still having pain COMPARISON: None. IMPRESSION: No acute fracture or dislocation. Mild degenerative changes of the secondmetatarsophalangeal joint and minimal degenerative changes of the 1stmetatarsophalangeal joint. No soft tissue swelling. Melissaenrrique Shepardconstance Chatman ANIMAL FEEDER IMG XR LOWER EXTREMITY Final Result documented in this encounter Visit Diagnoses Not on filedocumented in this encounter Care Teams Mold Yarn Supervisor Relationship Specialty Start Date End Date Thompson Mayorga MD [address] [place] [address] [place] [address] PCP - General Internal Medicine 02/07/24 documented as of this encounter Additional Source Comments The information contained in this document represents components of the legal health record. It is not the complete legal health record.[facility]
--- NOTE | 2025-06-12 18:02 | MHC.PC.OV ---
Vital Signs 06/13/25 10:44 Height 5 ft 6 in Weight 210 lb BMI 33.9 BP 163/74 H Blood Pressure Location Lt brachial Position Sitting Pulse 88 Pulse Source Pulse Oximeter Temp 98.9 F Temp Source Temporal Artery Scan Pulse Oximetry (%) 95 Oxygen Delivery Method Room Air Intake Visit Reasons: Discuss Labs - see comments Production Support Manager Required: No Accompanied by: Self / Same As Patient Allergies No Known Allergies Allergy (Verified 06/12/25 18:02) Medication List - Last Reconciled 06/13/25 by BIBI Camacho atorvastatin (Lipitor) 40 mg PO BEDTIME lisinopril 10 mg PO DAILY Tobacco use date assessed: 06/13/25 Dental Screening Dental Screen Date: 06/13/25 Did you have a dental visit in the last 12 months?: No Did you have a dental problem in the last 6 months where you did not have access to dental care?: No HPI HPI Comments History of Present Illness Details The patient is a 64-year-old male with HTN, HLD, DM and obesity presenting for a follow-up visit to manage chronic conditions and review lab results. The patient has a history of hypertension and has been taking lisinopril 5 mg daily, but his blood pressure remains elevated. His BP today was 163/74. He also has a history of hypercholesterolemia, treated with a statin at a dose of 20 mg. Recent lab work revealed a hemoglobin A1c of 6.8%, establishing a new diagnosis of diabetes mellitus. His total cholesterol was 247 mg/dL and his LDL cholesterol was 163 mg/dL. For health maintenance, his last colonoscopy was at age 55, and he is now due for a repeat screening. He has a prior referral to a lumber mover which he has had difficulty scheduling an appointment for. Medical History: - Hypertension - Hypercholesterolemia - Type 2 Diabetes Mellitus, newly diagnosed Medications: - Lisinopril 5 mg daily for hypertension - Statin 20 mg daily for hypercholesterolemia Patient was informed and verbally consented to the use of an ambient scribe for clinic note documentation during this visit. [facility] Medical History (Updated 06/13/25 @ 13:53 by BIBI Camacho) Actinic keratoses Diabetes Hyperglycemia Hyperlipidemia Hypertension Left foot pain Medication management Obesity (BMI 30.0-34.9) Seborrheic keratoses Family History (Updated 06/13/25 @ 10:50 by Sandee Shook MA) Mother No problems noted. Father No problems noted. Social History Housing: House Patient Tobacco Use Status: Current everyday Tobacco user e-Cigarette/Vaping Use: Currently Using (cigarette) service: No Current occupational status: retired Cognitive needs: No Hearing needs: No Vision needs: Yes (reading glasses) Questionnaire PHQ-9 Over the last 2 weeks, how often have you been bothered by any of the following problems? 1. Little interest or pleasure in doing things: not at all 2. Feeling down, depressed, or hopeless: not at all 3. Trouble falling or staying asleep, or sleeping too much: not at all 4. Feeling tired or having little energy: not at all 5. Poor appetite or overeating: not at all 6. Feeling bad about yourself - or that you are a failure or have let yourself or your family down: not at all 7. Trouble concentrating on things, such as reading the newspaper or watching television: not at all 8. Moving or speaking so slowly that other people could have noticed. Or the opposite - being so fidgety or restless that you have been moving around a lot more than usual: not at all 9. Thoughts that you would be better off or of hurting yourself in some way: not at all Total score: 0 Depression Screening Interpretation: Negative Depression Screening Done: Yes Source: Developed by Drs. Devyn Spaulding, Chayito Bruce, Tomy Oropeza and colleagues, with an educational kathia from [employer]. Thrive Questionnaire Date Thrive assessed: 06/13/25 I am a: Patient Within the past 12 months, did the food you bought not last and you didn't have the money to get more?: Never true Within the past 12 months, did you worry whether your food would run out before you got money to buy more?: Never true Do you have trouble paying for medicines?: No Do you have trouble getting transportation to medical appointments?: No Do you have trouble paying your heating and electricity bill?: No Do you have trouble taking care of your child, family member or friend?: No Do you have trouble with day-to-day activities such as bathing, preparing meals, shopping, managing finances, etc.?: No Are you currently unemployed and looking for a job?: No Are you interested in more education?: No THRIVE Score: 0 AUDIT C Alcohol Use Questionnaire (AUDIT-C) 1. How often do you have a drink containing alcohol?: Monthly or less 2. How many drinks containing alcohol do you have on a typical day when you are drinking?: 1 or 2 3. How often do you have six or more drinks on one occasion?: Less than monthly Total Score: 2 MARGY-7 AMB Questionnaire MARYG-7 Date MARGY - 7 assessed: 06/13/25 Feeling nervous, anxious, or on edge: 0 = Not at all Not being able to stop or control worryin = Not at all Worrying too much about different things: 0 = Not at all Trouble relaxin = Not at all Being so restless that it is hard to sit still: 0 = Not at all Becoming easily annoyed or irritable: 0 = Not at all Feeling afraid as if something awful might happen: 0 = Not at all Total MARGY-7 score (0-4 normal; 5-9 mild; 10-14 moderate; 15-21 severe): 0 Source: Developed by Drs. Devyn Spaulding, Chayito Bruce, Tomy Oropeza and colleagues, with an educational kathia from [employer]. Review of Systems Narrative CONSTITUTIONAL Negative HEAD/NECK Negative RESPIRATORY Negative CARDIOVASCULAR Negative NEUROLOGICAL Negative PSYCHIATRIC Negative Physical exam (Primary Care) Vital Signs: Last Vital Signs Temp 98.9 F 06/13/25 10:44 Pulse 88 06/13/25 10:44 BP 163/74 H 06/13/25 10:44 Pulse Ox 95 06/13/25 10:44 Oxygen Delivery Method Room Air 06/13/25 10:44 BMI result Body Mass Index 33.9 GENERAL Well developed, obese, in no apparent distress HEENT Head-Normocephalic Neck- Supple, No lymphadenopathy, thyroid WNL RESPIRATORY Normal I:E, Clear to auscultation CARDIOVASCULAR Regular, rate and rhythm, No murmurs or rubs NEUROLOGICAL Gait normal PSYCHIATRIC Oriented to person, place and time Mood and affect WNL Appearance WNL Speech WNL Thought processes WNL Tobacco/Smoking Status: Tobacco use Status Tobacco use date assessed 06/13/25 06/12/25 18:03 Patient Tobacco Use Status Current everyday Tobacco 06/12/25 18:03 e-Cigarette/Vaping Use Currently Using (cigarette) 06/12/25 18:03 PHQ-9: PHQ-9 Score PHQ-9: Total score 0 06/13/25 10:50 Depression Screening Interpretation: Negative Thrive Assessment: Date of Thrive Assessment Date Thrive assessed 06/13/25 06/12/25 18:03 Results Reviewed Results Reviewed: - Hemoglobin A1c: 6.8% - Total Cholesterol: 247 mg/dL - LDL Cholesterol: 163 mg/dL - HDL Cholesterol: Reported as very good. Coding Level of Care Code Established Pt Est Pt Level 4 (14726) Patient Type Established Diagnoses Primary hypertension I10 Hypertension type: primary hypertension Type 2 diabetes mellitus without complication, without long-term current use of insulin E11.9 Diabetes mellitus type: type 2 Diabetes mellitus equipment operator intermodal yard insulin use: without penitentiary use Diabetes mellitus complication status: without complication Mixed hyperlipidemia E78.2 Hyperlipidemia type: mixed hyperlipidemia Obesity (BMI 30.0-34.9) E66.811 Time Spent (min) 30 Comment Time spent on lab review, H&P, patient education and orders. Assessment & Plan Assessment & Plan (1) Hypertension: Comment: BP today was 163/74 Code(s): I10 - Essential (primary) hypertension Category: Medical Qualifiers: Hypertension type: primary hypertension Qualified Code(s): I10 - Essential (primary) hypertension Plan: The patient's blood pressure remains elevated despite daily use of lisinopril 5 mg. The dose of lisinopril will be increased to 10 mg daily. A new prescription will be sent to the pharmacy, and the patient is instructed to double his current 5 mg tablets until they are finished. Patient to follow up in 2 months or sooner if needed (2) Diabetes: Comment: BMI 6.8% Code(s): E11.9 - Type 2 diabetes mellitus without complications Category: Medical Qualifiers: Diabetes mellitus type: type 2 Diabetes mellitus penitentiary insulin use: without equipment operator intermodal yard use Diabetes mellitus complication status: without complication Qualified Code(s): E11.9 - Type 2 diabetes mellitus without complications Plan: The patient has a new diagnosis of diabetes mellitus based on a hemoglobin A1c of 6.8%. Initial management will consist of lifestyle modifications, including dietary adjustments and increased exercise, for two months. Dietary counseling was provided, focusing on reducing sugars and complex carbohydrates (pasta, rice, potatoes, bread) and adopting the plate method for portion control. A follow-up visit is scheduled in two months to re-evaluate. An order for follow-up lab work will be placed, to be completed one week prior to the next appointment. (3) Hyperlipidemia: Code(s): E78.5 - Hyperlipidemia, unspecified Category: Medical Qualifiers: Hyperlipidemia type: mixed hyperlipidemia Qualified Code(s): E78.2 - Mixed hyperlipidemia Plan: Cholesterol levels remain elevated with a total cholesterol of 247 mg/dL and LDL of 163 mg/dL, which is particularly concerning given the new diabetes diagnosis and associated cardiovascular risk. The statin dose will be increased from 20 mg to 40 mg daily. The patient is instructed to double his current 20 mg tablets until his supply is depleted, and a new prescription for 40 mg tablets will be sent to the pharmacy. Dietary advice was provided to reduce fats (red meats, fried foods) and increase fiber (vegetables, fruits, whole grains). (4) Obesity (BMI 30.0-34.9): Comment: BMI today was 33.6 Code(s): E66.811 - Obesity, class 1 Category: Medical Plan: Patient has maintained the same weight. Diet and exercise were reviewed. Plan I discussed the patient's recent lab results with him, including his hemoglobin A1c of 6.8%, which indicates a new diagnosis of diabetes. I explained the increased risk of heart disease and stroke associated with diabetes and the importance of managing all cardiovascular risk factors aggressively. I reviewed his elevated blood pressure and cholesterol levels. We discussed increasing his lisinopril dose to 10 mg and his statin dose to 40 mg to achieve better control. For the new diabetes diagnosis, I recommended an initial trial of lifestyle modifications, including dietary changes and increased exercise, for two months before considering medication. We also discussed the need for a repeat colonoscopy, as he is due for screening, and I will place a referral to gastroenterology. I confirmed his prior podiatry referral is still valid. A follow-up appointment is set for two months, and I will place an order for him to have blood work done a week prior to that visit. Orders: Orders Hemoglobin A1c Today E11.9 - Type 2 diabetes mellitus without complications Glucose Random Today E11.9 - Type 2 diabetes mellitus without complications Lipid Panel Today E78.2 - Mixed hyperlipidemia Referrals Open Access Screening Colonoscopy Referral Z12.11 - Encounter for screening for malignant neoplasm of colon Medications: New lisinopril dosage adjustment 10 mg PO DAILY 90 tabs 1RF for blood p[rssure atorvastatin (Lipitor) 40 mg PO BEDTIME 90 tabs 1RF for cholesterol Discontinued lisinopril Discontinued Reason: Doctor's Order 5 mg PO DAILY 90 tabs 1RF for blood pressure Patient Instructions: - Take one 10 mg tablet of lisinopril every day for your blood pressure. - You can take two of your current 5 mg pills until they run out. - Take one 40 mg tablet of your statin medication every day for your cholesterol. - You can take two of your current 20 mg pills until they run out. - New prescriptions will be sent to [facility]. - Focus on diet changes: avoid sugary foods and drinks like ice cream. - Reduce your portion sizes of carbohydrates like pasta, rice, potatoes, and bread. - Fill half of your dinner plate with vegetables. - Increase your physical activity, for example, by going for a walk. - You are due for a colonoscopy. - A referral will be sent to a specialist. - Your referral to the foot doctor is still good. - You have a follow-up appointment in two months (in August). - Please get blood work done about one week before this appointment.
[2025-06-13 10:44] VITALS: BP 163/74; PULSE 88; TEMP 37.2; O2SAT 95; BMI 33.9
--- OUTSIDE RECORDS SUMMARY | 2025-06-13 12:16 | XMS_ITS | Clinical Summary ---
Author Organization [facility] Address [address] [address] Phone Care Team Providers Care Hull Inspector Name Role Phone Thompson Mayorga MD Primary [...] topic Medical Devices Not on file Insurance [facility] [employer] COMPENSATION Care Teams Hull Inspector Relationship Specialty Start Date End Date Thompson Mayorga MD [address] [place] [address] [place] [id number] PCP - General Internal Medicine 02/07/24 Additional Source Comments The information contained in this document represents components of the legal health record. It is not the complete legal health record.[facility]
--- OUTSIDE RECORDS SUMMARY | 2025-06-13 12:16 | XMS_ITS | Patient Health Record ---
Author Organization [facility] Address [address] [place] [address] Care Team Providers Care Radio Installer Automobile Name Role Phone Tierra (RETIRED) Thompson CRISTINA [...] GM As directed Orally Over the specified time.; Duration: 1 day(s) 01/02/2016 Active Simvastatin Active Omeprazole 20 MG 1 capsule Orally Onc e a day Active Lisinopril Active Metoprolol Succinate Active Problems Problem Type SNOMED Code ICD Code Onset Dates Problem Status W/U Status Risk Notes Problem Colon cancer screening (067421139) Colon cancer screening (Z12.11) Active confirmed Problem Gastro-esophagea l reflux disease without esophagitis (842861391) Gastro-esophage al reflux disease without esophagitis (K21.9) Active confirmed Plan Of Treatment Future Test Test Name Order Date COLONOSCOPY 01/02/2016 Insurance Providers Payer Name Payer Address Payer Phone Subscriber Number Group Number Insured Name Patient Relationship to Insured Coverage Start Date Coverage End Date [facility] [address] [facility] [phone] [id number] IBAN JAZMINE Self - patient is the insured Medical (General) History Medical History History ICD Code hypertension Denies [place],DM,CVA,Lung disease,renal dise ase
== END 2025-06-13 11:12 | disposition home or self-care (01) ==
LOC: HO.HMCHD 10:38
PROVIDERS: PCP Physician Assistant Medical; Visit Provider Physician Assistant Medical
DX: I10 Essential (primary) hypertension (principal); E11.9 Type 2 diabetes mellitus without complications; E78.2 Mixed hyperlipidemia; E66.811 Obesity, class 1